=== PATIENT | female | born 1980 | race Caucasian/White ===

== ENCOUNTER 2016-03-01 13:28 | Emergency (ER) | payer SELFPAY ==
[~2016-03-01] VITALS: Ht 167.6 cm; Wt 74.8 kg
[~2016-03-01 13:28] MED LIST: CLON1TAB3 PO; ONDA4TAB10 SL; ONDA4TAB7 PO; RANI300T3 PO
[2016-03-01 14:02] VITALS: BP 161/77
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
[2016-03-01] MEDS ORDERED: KETOROLAC TROMETHAMINE 30 MG/ML SYRINGE. IV ONE (14:45)
== END 2016-03-01 14:56 | disposition home or self-care (01) ==
LOC: ER 13:28
DX: M79.1 Myalgia (principal); F41.9 Anxiety disorder, unspecified; F32.9 Major depressive disorder, single episode, unspecified; I10 Essential (primary) hypertension; F43.10 Post-traumatic stress disorder, unspecified; F14.10 Cocaine abuse, uncomplicated; F11.10 Opioid abuse, uncomplicated; F12.10 Cannabis abuse, uncomplicated; F15.10 Other stimulant abuse, uncomplicated; F10.10 Alcohol abuse, uncomplicated; F16.10 Hallucinogen abuse, uncomplicated
CPT/HCPCS: 96374; 99284; J1885

== ENCOUNTER 2016-03-01 17:52 | Emergency (ER) | payer SELFPAY ==
[2016-03-01 14:02] VITALS: BP 161/77
== END 2016-03-01 19:22 | disposition left against medical advice (07) ==
LOC: ER 17:53
DX: Z53.21 Procedure and treatment not carried out due to patient leaving prior to being seen by health care provider (principal)

== ENCOUNTER 2021-03-19 13:52 | Emergency (ER) | payer OTHER ==
[~2021-03-19] VITALS: Ht 167.6 cm; Wt 73.4 kg
[~2021-03-19 13:52] MED LIST changes: -CLON1TAB3 PO; +CLONAZEPAM1 MG PO
[2021-03-19] MEDS ORDERED: ACETAMINOPHEN 500 MG TABLET PO ONE (14:45)
[2021-03-19 14:50] LABS: BASO # 0.1 x10^3/uL (0.0-0.2); BASO % 1 % (0-3); EOS # 0.1 x10^3/uL (0.0-0.7); EOS % 1 % (0-3); HEMATOCRIT 38.6 % (36.0-47.0); HEMOGLOBIN 12.7 g/dL (12.0-15.5); LYMPH # 2.8 x10^3/uL (1.0-4.8); LYMPH % 50 % (24-48); MEAN CORPUSCULAR HEMOGLOBIN 32 pg (25-35); MEAN CORPUSCULAR HGB CONC 33 g/dL (31-37); MEAN CORPUSCULAR VOLUME 97 fL (79-100); MONO # 0.5 x10^3/uL (0.0-1.1); MONO % 10 % (0-9); NEUT # 2.1 x10^3/uL (1.8-7.7); NEUT % 38 % (31-73); PLATELET COUNT 231 x10^3/uL (140-400); RED BLOOD COUNT 3.98 x10^6/uL (3.50-5.40); RED CELL DISTRIBUTION WIDTH 12.8 % (11.5-14.5); WHITE BLOOD COUNT 5.6 x10^3/uL (4.0-11.0)
[2021-03-19 15:00] LABS: CALCIUM 8.7 mg/dL (8.5-10.1); CREATININE 0.6 mg/dL (0.6-1.0); GFR 110.7
--- NOTE | 2021-03-19 15:05 | PHYS DOC ---
Past Medical History Past Medical History: Anxiety, Depression, Hypertension, Seizure, Other Additional Past Medical Histor: PTSD; substance abuse, Hep B+, Hep C+ Past Surgical History: Tubal ligation, Other Additional Past Surgical Histo: RIGHT HIP Smoking Status: Current Every Day Smoker Alcohol Use: Sober Drug Use: Cocaine, Heroin, Marijuana, Methamphetamine, Opiates, Phencyclidine, Other General Adult EDM: Chief Complaint: SUICDAL IDEATION HPI: HPI: Patient is a 40 year old female who presents with was not taking her meds for the last 5 days. States she has been extra stressed and she is having right ear pain and she watson herself to release with pain. She states she currently is not having suicidal or homicidal thoughts. She states that she has hearing voices that will call out her name. She states they are not telling her to do anything. She states that she has "been trying to listen forgot to speak to her and to tell her what is wrong with her." Patient states that she went to [facility] today to get some help but they said that she needed a Covid test. Patient has a history of seizure, tubal ligation, smoker, bipolar, hypertension, PTSD, substance abuse, hepatitis B, hepatitis C. Review of Systems: Review of Systems: Constitutional: Denies fever or chills. [] Eyes: Denies change in visual acuity. [] HENT: Denies nasal congestion or sore throat. + Right ear pain [] Respiratory: Denies cough or shortness of breath. [] Cardiovascular: Denies chest pain or edema. [] GI: Denies abdominal pain, nausea, vomiting, bloody stools or diarrhea. [] : Denies dysuria. [] Musculoskeletal: Denies back pain or joint pain. [] Integument: Denies rash. [] Neurologic: Denies headache, focal weakness or sensory changes. [] Endocrine: Denies polyuria or polydipsia. [] Lymphatic: Denies swollen glands. [] Psychiatric: Denies depression or +anxiety. + Hearing voices [] Heart Score: C/O Chest Pain: No Current Medications: Current Medications Medications (Trade) Dose Ordered Sig/[facility] Start Time Stop Time Status Last Admin Dose Admin Acetaminophen (Tylenol) 1,000 mg 1X ONCE 03/19/21 14:45 03/19/21 14:46 DC 03/19/21 14:46 1,000 MG Allergies: Allergies: Allergies Coded Allergies Type Severity Reaction Last Updated Verified No Known Drug Allergies 03/19/21 No Physical Exam: PE: Constitutional: Well developed, well nourished, no acute distress, non-toxic appearance. [] HENT: Normocephalic, atraumatic, bilateral external ears normal, oropharynx moist, no oral exudates, nose normal. Right otitis externa [] Eyes: PERRLA, EOMI, conjunctiva normal, no discharge. [] Neck: Normal range of motion, no tenderness, supple, no stridor. [] Cardiovascular:Heart rate regular rhythm, no murmur [] Lungs & Thorax: Bilateral breath sounds clear to auscultation [] Abdomen: Bowel sounds normal, soft, no tenderness, no masses, no pulsatile masses. [] Skin: Warm, dry, no erythema, no rash. Old watson to her left wrist. [] Back: No tenderness, no CVA tenderness. [] Extremities: No tenderness, no cyanosis, no clubbing, ROM intact, no edema. [] Neurologic: Alert and oriented X 3, normal motor function, normal sensory function, no focal deficits noted. Anxious. Speaking to people in room that are not there. [] Psychologic: Affect normal, judgement normal, mood normal. [] Current Patient Data: Labs: Laboratory Tests Test 03/19/21 14:38 White Blood Count 5.6 x10^3/uL (4.0-11.0) Red Blood Count 3.98 x10^6/uL (3.50-5.40) Hemoglobin 12.7 g/dL (12.0-15.5) Hematocrit 38.6 % (36.0-47.0) Mean Corpuscular Volume 97 fL (79-100) Mean Corpuscular Hemoglobin 32 pg (25-35) Mean Corpuscular Hemoglobin Concent 33 g/dL (31-37) Red Cell Distribution Width 12.8 % (11.5-14.5) Platelet Count 231 x10^3/uL (140-400) Neutrophils (%) (Auto) 38 % (31-73) Lymphocytes (%) (Auto) 50 % (24-48) H Monocytes (%) (Auto) 10 % (0-9) H Eosinophils (%) (Auto) 1 % (0-3) Basophils (%) (Auto) 1 % (0-3) Neutrophils # (Auto) 2.1 x10^3/uL (1.8-7.7) Lymphocytes # (Auto) 2.8 x10^3/uL (1.0-4.8) Monocytes # (Auto) 0.5 x10^3/uL (0.0-1.1) Eosinophils # (Auto) 0.1 x10^3/uL (0.0-0.7) Basophils # (Auto) 0.1 x10^3/uL (0.0-0.2) Laboratory Tests 03/19/21 14:38 Vital Signs: Vital Signs Date Time Temp Pulse Resp B/P (MAP) Pulse Ox O2 Delivery O2 Flow Rate FiO2 03/19/21 14:04 98.0 75 18 137/86 (103) 95 Room Air 98.0 EKG: EKG: [] Radiology/Procedures: Radiology/Procedures: [] Course & Med Decision Making: Course & Med Decision Making Pertinent Labs and Imaging studies reviewed. (See chart for details) See HPI. Alert and oriented x4. Speaks in full clear sentences. Very anxious. Speaking to people in the room that are not there. Calm and cooperative at this time. Right ear has otitis externa with drainage. Cannot see the eardrum. Patient is given Tylenol for pain. PAT team has been notified of her arrival. Dina with PAT team came and seen the patient. [facility] did states that they will take her but they cannot take her until the morning when they have a room. I have ordered antibiotic drops for her ear while she is here. I will send p rescription to [facility] for [facility] to get for the patient. Patient is an ED hold. [] Dragon Disclaimer: Dragon Disclaimer: This electronic medical record was generated, in whole or in part, using a voice recognition dictation system. Departure Departure Impression: Primary Impression: Otitis externa Qualified Codes: H60.391 - Other infective otitis externa, right ear Additional Impressions: Self-harming behavior Auditory hallucinations Disposition: [address] [place] [address] ([facility]) Condition: STABLE Referrals: NO PCP (PCP) Patient Instructions: Otitis Externa, Self-Destructive Behavior Additional Instructions: Use medication as prescribed. Take Tylenol for pain as prescribed. If your symptoms worsen you can return to the ED. Scripts Acetaminophen (ACETAMINOPHEN) 500 Mg Tablet 2 TAB PO PRN Q8HRS PRN for pain or fever for 7 Days, #42 TAB 0 Refills Prov: TRESA HAY APRN 03/19/21 Neomycin/Polymyxin B Sulf/Hc ([id number] EAR SUSP) 10 Ml Drops.susp 3 DROP RIGHT EAR TID for 5 Days, #10 ML 0 Refills Prov: TRESA HAY APRN 03/19/21 TRESA HAY APRN Mar 19, 2021 15:05
[2021-03-19 15:13] LABS: ACETAMIN < 2 mcg/ml (10-30); ETHANOL < 10 mg/dL (0-10); SALIC 2.9 mg/dL (2.8-20.0)
[2021-03-19 15:32] LABS: BILIRUBIN,URINE NEGATIVE (NEG); CLARITY,URINE CLEAR; COLOR,URINE YELLOW; NITRITE,URINE NEGATIVE (NEG); PROTEIN,URINE NEGATIVE (NEG-TRACE); UROBILINOGEN,URINE 0.2 mg/dL (0.2 mg/dL)
[2021-03-19 15:35] LABS: BARBITURATES NEG (NEG); BENZODIAZEPINES NEG (NEG); CANNABINOIDS NEG (NEG); COCAINE NEG (NEG); METHADONE NEG (NEG); OPIATES NEG (NEG); PHENCYCLIDINE NEG (NEG)
[2021-03-19 15:38] LABS: AMPHETAMINE/METHAMPHETAMINE NEG (NEG)
[2021-03-19 15:45] LABS: BACTERIA,URINE 0 /HPF (0-FEW); RBC,URINE 0 /HPF (0-2); WBC,URINE 0 /HPF (0-4)
[2021-03-19] MEDS ORDERED: NEOM10DR32 RIGHT EAR ×2 (17:37→17:42)
[2021-03-19] MEDS ORDERED: ACET500T68 PO ×2 (17:37→17:42)
[2021-03-19] MEDS: NEOMYCIN/POLYMYXIN/HC OTIC SUSPENSION 10ML BOTTLE. AD SCH ×2 (17:41→22:00)
[2021-03-19] MEDS ORDERED: IBUPROFEN 400 MG TABLET. PO ONE (17:45)
[2021-03-19] MEDS ORDERED: hydrOXYzine 25 MG TABLET PO ONE (19:30)
[2021-03-19] MEDS ORDERED: LORazepam 0.5 MG TABLET PO ONE (20:30)
[2021-03-19] MEDS ORDERED: OLANZapine 5 MG TABLET PO ONE (20:30)
[2021-03-19] MEDS ORDERED: NICOTINE 21MG PATCH. TD SCH (21:00)
[2021-03-20] MEDS: NEOMYCIN/POLYMYXIN/HC OTIC SUSPENSION 10ML BOTTLE. AD SCH (08:49)
[2021-03-20 13:49] VITALS: BP 139/75
--- NOTE | 2021-03-20 17:13 | NUR ---
IP: Attempted to contact pt concerning covid results. Phone number provided is to a cousin. Requested she have pt return my call.
== END 2021-03-19 18:01 ==
LOC: ER 13:52
DX: R45.851 Suicidal ideations (principal); Z20.822 Contact with and (suspected) exposure to COVID-19; R44.0 Auditory hallucinations; H60.391 Other infective otitis externa, right ear; F41.9 Anxiety disorder, unspecified; I10 Essential (primary) hypertension; F32.9 Major depressive disorder, single episode, unspecified; F43.10 Post-traumatic stress disorder, unspecified; F17.200 Nicotine dependence, unspecified, uncomplicated
CPT/HCPCS: 36415; 80048; 80307; 80329; 81001; 81025; 85025; 87426; 99285; G0480; U0003; U0005